=== PATIENT | male | born 1995 | race Caucasian/White ===

== ENCOUNTER 2017-02-16 20:27 | Inpatient (IN) | payer OTHER ==
[~2017-02-16] VITALS: Ht 182.9 cm; Wt 114.5 kg
[2017-02-16 21:30] LABS: MEAN PLAT.VOLUME 9.1 uM^3 (9.0-12.4); PLATELET COUNT 193 K/uL (156-360)
[2017-02-16 21:35] LABS: HEMATOCRIT 43.6 % (38.0-50.0); MCH 30.3 PG (29.0-34.0); MCHC 35.3 G/DL (30.0-36.0); MCV 85.7 FL (86-99); RBC DIS.WIDTH-SD 37.6 % (39-53); RED BLOOD COUNT 5.09 M/uL (4.00-5.50); WHITE BLOOD COUNT 31.8 K/uL (4.1-10.2)
[2017-02-16 21:40] LABS: CHLORIDE 107 mEq/L (99-109); POTASSIUM 2.7 mEq/L (3.7-5.4); SODIUM 141 mEq/L (136-147)
[2017-02-16 21:43] LABS: ANION GAP 14 MEQ/L (2-14); GLUCOSE 170 mg/dL (70-99)
[2017-02-16 21:44] LABS: TOTAL BILIRUBIN 0.6 mg/dL (0.0-1.0)
[2017-02-16 21:45] LABS: ALKALINE PHOSPHATASE 74 IU/L (3-129)
[2017-02-16 21:46] LABS: GFR ESTIMATE (CALCULATED) > 59 mL/min/
[2017-02-16 21:47] LABS: UREA NITROGEN (BUN) 15 mg/dL (9-23)
[2017-02-16] MEDS ORDERED: PROAIR HFA8.5 GM IH (21:52)
[2017-02-16] MEDS ORDERED: SYNTHROID50 MCG PO (21:52)
[2017-02-16 22:06] LABS: SERUM ETHYL ALCOHOL < 10 mg/dL
[2017-02-16 23:43] LABS: COCAINE NEGATIVE (150 ng/mL); PHENCYCLIDINE NEGATIVE (25 ng/mL); THC CANNABINOIDS NEGATIVE (50 ng/mL)
[2017-02-16 23:44] LABS: ADD MEDTOX COMMENT Y; AMPHETAMINE NEGATIVE (500 ng/mL); BARBITURATES NEGATIVE (200 ng/mL); BENZODIAZEPINES NEGATIVE (150 ng/mL); INTERNAL CONTROLS VALID? YES; METHADONE NEGATIVE (200 ng/mL); METHAMPHETAMINE NEGATIVE (500 ng/mL); OPIATES (MORPHINE) PRESUMPTIVE POSITIVE (100 ng/mL); OXYCODONE NEGATIVE (100 ng/mL); PROPOXYPHENE NEGATIVE (300 ng/mL); TRICYCLIC ANTIDEPRESSANTS NEGATIVE (300 ng/mL)
[2017-02-16 23:45] VITALS: BP 175/106
[2017-02-17] VITALS (37 sets, daily range): BP systolic 128–176; BP diastolic 74–116
[2017-02-17 01:23] LABS: METH RESISTANT S AUREUS PCR NEGATIVE (NEGATIVE)
[2017-02-17 01:24] LABS: PROBE CHECK PASS; SPECIMEN PROCESSING CONTROL PASS
[2017-02-17 04:48] LABS: HEMATOCRIT 43.1 % (38.0-50.0); MCH 30.1 PG (29.0-34.0); MCHC 34.8 G/DL (30.0-36.0); MCV 86.5 FL (86-99); PLATELET COUNT 160 K/uL (156-360); RBC DIS.WIDTH-CV 12.3 % (11.8-14.6); RBC DIS.WIDTH-SD 38.8 % (39-53); RED BLOOD COUNT 4.98 M/uL (4.00-5.50); WHITE BLOOD COUNT 19.6 K/uL (4.1-10.2)
[2017-02-17 05:02] LABS: CHLORIDE 108 mEq/L (99-109); SODIUM 140 mEq/L (136-147)
[2017-02-17 05:04] LABS: GLUCOSE 168 mg/dL (70-99)
[2017-02-17 05:05] LABS: ANION GAP 13 MEQ/L (2-14)
[2017-02-17 05:08] LABS: GFR ESTIMATE (CALCULATED) > 59 mL/min/
[2017-02-17 05:09] LABS: UREA NITROGEN (BUN) 11 mg/dL (9-23)
[2017-02-17 05:11] LABS: POTASSIUM 4.3 mEq/L (3.7-5.4)
[2017-02-17 12:35] LABS: INTER. NORMALIZED RATIO 1.3
[2017-02-17 12:37] LABS: PTT 26.7 SEC (25-37)
[2017-02-17 12:59] LABS: ANION GAP 9 MEQ/L (2-14); CHLORIDE 109 MEQ/L (99-109); GFR ESTIMATE (CALCULATED) > 59 mL/min/; GLUCOSE 149 mg/dL (70-99); POTASSIUM 3.9 MEQ/L (3.7-5.4); SAMPLE HEMOLYSIS CHECK 0; SAMPLE ICTERIC CHECK 0; SAMPLE LIPEMIA CHECK 0; SODIUM 141 MEQ/L (136-147); UREA NITROGEN (BUN) 12 mg/dL (9-23)
[2017-02-17 15:00] LABS: ANION GAP 8 MEQ/L (2-14); CHLORIDE 109 MEQ/L (99-109); GFR ESTIMATE (CALCULATED) > 59 mL/min/; GLUCOSE 138 mg/dL (70-99); POTASSIUM 3.8 MEQ/L (3.7-5.4); SAMPLE HEMOLYSIS CHECK 0; SAMPLE ICTERIC CHECK 0; SAMPLE LIPEMIA CHECK 0; SODIUM 140 MEQ/L (136-147); UREA NITROGEN (BUN) 11 mg/dL (9-23)
[2017-02-17 18:51] LABS: ANION GAP 8 MEQ/L (2-14); CHLORIDE 110 MEQ/L (99-109); GFR ESTIMATE (CALCULATED) > 59 mL/min/; GLUCOSE 127 mg/dL (70-99); POTASSIUM 3.7 MEQ/L (3.7-5.4); SAMPLE HEMOLYSIS CHECK 0; SAMPLE ICTERIC CHECK 0; SAMPLE LIPEMIA CHECK 0; SODIUM 141 MEQ/L (136-147); UREA NITROGEN (BUN) 12 mg/dL (9-23)
[2017-02-18] VITALS (32 sets, daily range): BP systolic 137–180; BP diastolic 77–102
[2017-02-18 01:30] LABS: CHLORIDE 116 mEq/L (99-109); SODIUM 143 mEq/L (136-147)
[2017-02-18 01:32] LABS: GLUCOSE 120 mg/dL (70-99)
[2017-02-18 01:34] LABS: ANION GAP 8 MEQ/L (2-14)
[2017-02-18 01:36] LABS: GFR ESTIMATE (CALCULATED) > 59 mL/min/
[2017-02-18 01:37] LABS: UREA NITROGEN (BUN) 12 mg/dL (9-23)
[2017-02-18 05:43] LABS: ANION GAP 10 MEQ/L (2-14); CHLORIDE 113 MEQ/L (99-109); GFR ESTIMATE (CALCULATED) > 59 mL/min/; GLUCOSE 135 mg/dL (70-99); POTASSIUM 3.9 MEQ/L (3.7-5.4); SAMPLE HEMOLYSIS CHECK 0; SAMPLE ICTERIC CHECK 0; SAMPLE LIPEMIA CHECK 0; SODIUM 143 MEQ/L (136-147); UREA NITROGEN (BUN) 12 mg/dL (9-23)
[2017-02-18 20:43] LABS: ANION GAP 11 MEQ/L (2-14); CHLORIDE 112 MEQ/L (99-109); GFR ESTIMATE (CALCULATED) > 59 mL/min/; GLUCOSE 106 mg/dL (70-99); POTASSIUM 3.7 MEQ/L (3.7-5.4); SAMPLE HEMOLYSIS CHECK 0; SAMPLE ICTERIC CHECK 0; SAMPLE LIPEMIA CHECK 0; SODIUM 143 MEQ/L (136-147); UREA NITROGEN (BUN) 13 mg/dL (9-23)
[2017-02-19] VITALS (24 sets, daily range): BP systolic 129–181; BP diastolic 76–103
[2017-02-19 06:21] LABS: EOSINOPHIL (%) 0.1 % (0-5); HEMATOCRIT 36.8 % (38.0-50.0); IMMATURE GRANULOCYTE (%) 0.6 % (0.0-0.7); IMMATURE GRANULOCYTE COUNT 0.1 K/uL; INSTRUMENT ABS NEUTROPHIL CT 8.4 K/uL; LYMPHOCYTE COUNT 1.5 K/uL (1.0-2.8); MCH 30.8 PG (29.0-34.0); MCHC 33.7 G/DL (30.0-36.0); MCV 91.3 FL (86-99); MEAN PLAT.VOLUME 9.7 uM^3 (9.0-12.4); MONOCYTE (%) 7.9 % (3-12); MONOCYTE COUNT 0.9 K/uL (0-0.8); NEUTROPHIL COUNT 8.4 K/uL (1.8-6.4); PLATELET COUNT 129 K/uL (156-360); RBC DIS.WIDTH-CV 13.2 % (11.8-14.6); RED BLOOD COUNT 4.03 M/uL (4.00-5.50); WHITE BLOOD COUNT 10.9 K/uL (4.1-10.2)
[2017-02-19 08:35] LABS: ANION GAP 9 MEQ/L (2-14); CHLORIDE 114 MEQ/L (99-109); GFR ESTIMATE (CALCULATED) > 59 mL/min/; GLUCOSE 102 mg/dL (70-99); POTASSIUM 3.7 MEQ/L (3.7-5.4); SAMPLE HEMOLYSIS CHECK 0; SAMPLE ICTERIC CHECK 0; SAMPLE LIPEMIA CHECK 0; SODIUM 144 MEQ/L (136-147); UREA NITROGEN (BUN) 15 mg/dL (9-23)
[2017-02-19 20:17] LABS: ANION GAP 9 MEQ/L (2-14); CHLORIDE 105 MEQ/L (99-109); GFR ESTIMATE (CALCULATED) > 59 mL/min/; GLUCOSE 124 mg/dL (70-99); POTASSIUM 3.6 MEQ/L (3.7-5.4); SAMPLE HEMOLYSIS CHECK 0; SAMPLE ICTERIC CHECK 0; SAMPLE LIPEMIA CHECK 0; SODIUM 137 MEQ/L (136-147); UREA NITROGEN (BUN) 13 mg/dL (9-23)
[2017-02-20] VITALS (13 sets, daily range): BP systolic 120–178; BP diastolic 78–101
[2017-02-20 08:09] LABS: ANION GAP 11 MEQ/L (2-14); CHLORIDE 105 MEQ/L (99-109); GFR ESTIMATE (CALCULATED) > 59 mL/min/; GLUCOSE 108 mg/dL (70-99); POTASSIUM 3.4 MEQ/L (3.7-5.4); SAMPLE HEMOLYSIS CHECK 0; SAMPLE ICTERIC CHECK 0; SAMPLE LIPEMIA CHECK 0; SODIUM 138 MEQ/L (136-147); UREA NITROGEN (BUN) 13 mg/dL (9-23)
[2017-02-21 07:06] LABS: ANION GAP 10 MEQ/L (2-14); CHLORIDE 104 MEQ/L (99-109); GFR ESTIMATE (CALCULATED) > 59 mL/min/; GLUCOSE 98 mg/dL (70-99); POTASSIUM 3.8 MEQ/L (3.7-5.4); SAMPLE HEMOLYSIS CHECK 0; SAMPLE ICTERIC CHECK 0; SAMPLE LIPEMIA CHECK 0; SODIUM 139 MEQ/L (136-147); UREA NITROGEN (BUN) 14 mg/dL (9-23)
[2017-02-21 07:08] VITALS: BP 135/83
[2017-02-21 15:07] VITALS: BP 149/90
[2017-02-21 23:41] VITALS: BP 132/82
[2017-02-22 07:47] VITALS: BP 129/88
[2017-02-22 09:02] VITALS: BP 129/88
[2017-02-22] MEDS ORDERED: AMBIEN5 MG PO (13:42)
[2017-02-22] MEDS ORDERED: PEPCID20 MG PO (13:43)
[2017-02-22] MEDS ORDERED: ZESTRIL5 MG PO (13:44)
[2017-02-22] MEDS ORDERED: SENOKOT,SENN1 TABLET PO (13:44)
[2017-02-22] MEDS ORDERED: COLACE100 MG PO (13:46)
[2017-02-22] MEDS ORDERED: PROMETHAZINE HC25 M1 PO (13:49)
[2017-02-22] MEDS ORDERED: ZOFRAN4 MG PO (13:51)
[2017-02-22] MEDS ORDERED: NORCO 10/3251 TABLET PO (13:51)
[2017-02-22] MEDS ORDERED: TYLENOL REGULA325 MG PO (13:53)
== END 2017-02-22 13:18 | DRG 964 ==
LOC: EDBD 20:27 → EME 20:27 → TRA 20:27 → 4WEST 22:35 → EDOF 22:35 → ENRESERV 22:42 → 4WEST 23:30 → ENRESERV 02-20 09:07 → 3EAST 02-20 11:01
PROVIDERS: Emergency Medicine; Internal Medicine Critical Care Medicine; Neurological Surgery; Surgery
DX: S06.5X1A Traumatic subdural hemorrhage with loss of consciousness of 30 minutes or less, initial encounter (principal); S42.002A Fracture of unspecified part of left clavicle, initial encounter for closed fracture; S06.1X1A Traumatic cerebral edema with loss of consciousness of 30 minutes or less, initial encounter; S06.6X1A Traumatic subarachnoid hemorrhage with loss of consciousness of 30 minutes or less, initial encounter; S22.42XA Multiple fractures of ribs, left side, initial encounter for closed fracture; S27.0XXA Traumatic pneumothorax, initial encounter; E03.9 Hypothyroidism, unspecified; S02.0XXA Fracture of vault of skull, initial encounter for closed fracture; J45.909 Unspecified asthma, uncomplicated; R40.2412 Glasgow coma scale score 13-15, at arrival to emergency department; E66.9 Obesity, unspecified; Z68.34 Body mass index [BMI] 34.0-34.9, adult; Y93.51 Activity, roller skating (inline) and skateboarding; V00.131A Fall from skateboard, initial encounter; S20.312A Abrasion of left front wall of thorax, initial encounter; S40.212A Abrasion of left shoulder, initial encounter; S27.321A Contusion of lung, unilateral, initial encounter; I10 Essential (primary) hypertension; E87.6 Hypokalemia
CPT/HCPCS: 70450; 70486; 71010; 71260; 72040; 72125; 72129; 72132; 73000; 74177; 80048; 80048 91; 80053; 83605; 84999; 85025; 85027; 85610; 85730; 86850; 86900; 86901; 87641; 92507 GN; 92523 GN; 92610 GN; 93306; 94799; 97530 GO; 99202; 99281; 99285; G0480; J0360; J1170; J2270; J2405; J2550; J3480; J7030; Q0169; S0028

== ENCOUNTER 2017-02-21 13:59 | Inpatient (IN) | payer OTHER ==
[~2017-02-21] VITALS: Ht 188 cm; Wt 136.4 kg
[~2017-02-21 13:59] MED LIST: PROAIR HFA8.5 GM IH; SYNTHROID50 MCG PO
[2017-02-22 13:38] VITALS: BP 133/86
[2017-02-22] MEDS ORDERED: AMBIEN5 MG PO (13:42)
[2017-02-22] MEDS ORDERED: PEPCID20 MG PO (13:43)
[2017-02-22] MEDS ORDERED: ZESTRIL5 MG PO (13:44)
[2017-02-22] MEDS ORDERED: SENOKOT,SENN1 TABLET PO (13:44)
[2017-02-22] MEDS ORDERED: COLACE100 MG PO (13:46)
[2017-02-22] MEDS ORDERED: PROMETHAZINE HC25 M1 PO (13:49)
[2017-02-22] MEDS ORDERED: ZOFRAN4 MG PO (13:51)
[2017-02-22] MEDS ORDERED: NORCO 10/3251 TABLET PO (13:51)
[2017-02-22] MEDS ORDERED: TYLENOL REGULA325 MG PO (13:53)
[2017-02-22 23:42] VITALS: BP 139/84
[2017-02-23 06:31] VITALS: BP 109/70
[2017-02-23 06:50] LABS: ALKALINE PHOSPHATASE 63 IU/L (3-129); ANION GAP 8 MEQ/L (2-14); CHLORIDE 102 MEQ/L (99-109); GFR ESTIMATE (CALCULATED) > 59 mL/min/; GLUCOSE 106 mg/dL (70-99); SAMPLE HEMOLYSIS CHECK 0; SAMPLE ICTERIC CHECK 0; SAMPLE LIPEMIA CHECK 0; SODIUM 137 MEQ/L (136-147); UREA NITROGEN (BUN) 12 mg/dL (9-23)
[2017-02-23 06:59] VITALS: BP 109/70
[2017-02-23 06:59] LABS: HEMATOCRIT 39.2 % (38.0-50.0); MCH 30.7 PG (29.0-34.0); MCHC 35.2 G/DL (30.0-36.0); MEAN PLAT.VOLUME 9.4 uM^3 (9.0-12.4); PLATELET COUNT 165 K/uL (156-360); RBC DIS.WIDTH-CV 12.3 % (11.8-14.6); RBC DIS.WIDTH-SD 38.8 % (39-53); WHITE BLOOD COUNT 10.9 K/uL (4.1-10.2)
[2017-02-23 07:00] LABS: MCV 87.1 FL (86-99)
[2017-02-23 15:15] VITALS: BP 126/76
[2017-02-24 06:04] VITALS: BP 121/76
[2017-02-24 15:58] VITALS: BP 129/84
[2017-02-25 05:28] VITALS: BP 120/62
[2017-02-25 15:47] VITALS: BP 125/69
[2017-02-25] MEDS ORDERED: ZESTRIL5 MG PO (20:13)
[2017-02-25] MEDS ORDERED: PROMETHAZINE HC25 M1 PO (20:13)
[2017-02-25] MEDS ORDERED: BUTALB-APAP-CA1 EACH PO (20:13)
[2017-02-25] MEDS ORDERED: ANTIVERT25 MG PO (20:13)
[2017-02-26 04:56] VITALS: BP 120/71
== END 2017-02-26 14:17 | DRG 945 ==
LOC: 3WEST 13:59 → ENPENDDIS 02-26 → 3WEST 02-26 14:17
PROVIDERS: Physical Medicine & Rehabilitation Pain Medicine
PROC: F07M0ZZ Range of Motion and Joint Mobility Treatment of Musculoskeletal System - Whole Body (ICD-10-PCS; principal; 2017-02-22)
DX: S06.6X9D Traumatic subarachnoid hemorrhage with loss of consciousness of unspecified duration, subsequent encounter (principal); S02.91XD Unspecified fracture of skull, subsequent encounter for fracture with routine healing; S22.42XD Multiple fractures of ribs, left side, subsequent encounter for fracture with routine healing; R26.89 Other abnormalities of gait and mobility; S42.022D Displaced fracture of shaft of left clavicle, subsequent encounter for fracture with routine healing; R13.10 Dysphagia, unspecified; I10 Essential (primary) hypertension; J45.909 Unspecified asthma, uncomplicated; E03.9 Hypothyroidism, unspecified; S27.321D Contusion of lung, unilateral, subsequent encounter; G93.6 Cerebral edema; D69.6 Thrombocytopenia, unspecified; D64.9 Anemia, unspecified; H81.10 Benign paroxysmal vertigo, unspecified ear; D72.829 Elevated white blood cell count, unspecified; E66.9 Obesity, unspecified; Z68.38 Body mass index [BMI] 38.0-38.9, adult
CPT/HCPCS: 73000; 80053; 85027; 92523 GN; 92526 GN; 94010; 97110 GO; 97530 GP; 97532 GN; Q0169